=== PATIENT | female | born 1980 | race Caucasian/White ===

== ENCOUNTER 2022-07-16 20:45 | Emergency (ER) | payer OTHER, SELFPAY ==
[2022-07-16 20:46] VITALS: BP 139/89; PULSE 121; RESP 18; TEMP 36.9; O2SAT 96; BMI 22.8
--- NOTE | 2022-07-16 20:48 | ED.PSYCH ---
HPI - Psych General Chief Complaint: General Medical <ABBY Cabrera - Last Filed: 07/16/22 20:51> Stated Complaint: Medical Clearance <ABBY Cabrera - Last Filed: 07/16/22 20:51> Time Seen by Provider: 07/16/22 21:14 <ABBY Cabrera - Last Filed: 07/16/22 20:51> Source: patient <Nixon Johnson MD - Last Filed: 07/16/22 21:43> Mode of arrival: ambulatory <Nixon Johnson MD - Last Filed: 07/16/22 21:43> Limitations: no limitations <Nixon Johnson MD - Last Filed: 07/16/22 21:43> History of Present Illness HPI Narrative: Patient from half a house went out had cocaine and heroin relapse wants to get drug screening done to go back specially check for fentanyl <Nixon Johnson MD - Last Filed: 07/16/22 21:43> Related Data Allergies/Adverse Reactions: Allergies Allergy/AdvReac Type Severity Reaction Status Date / Time No Known Allergies Allergy Verified 07/16/22 20:48 <ABBY Cabrera - Last Filed: 07/16/22 20:51> Review of Systems Review of Systems: Yes all other systems are reviewed and are negative <Nixon Johnson MD - Last Filed: 07/16/22 21:43> [facility] Social History Social History: Social History Advance Directives: No Advance Directives Information Provided: No <ABBY Cabrera - Last Filed: 07/16/22 20:51> Physical Exam Vital Signs: Vital Signs: Last Vital Signs Temp 98.4 F 07/16/22 20:46 Pulse 121 H 07/16/22 20:46 Resp 18 07/16/22 20:46 BP 139/89 07/16/22 20:46 Pulse Ox 96 07/16/22 20:46 O2 Del Method 07/16/22 20:46 BMI result Body Mass Index 22.8 <ABYB Cabrera - Last Filed: 07/16/22 20:51> Vital Signs: Last Vital Signs Temp 98.4 F 07/16/22 20:46 Pulse 121 H 07/16/22 20:46 Resp 18 07/16/22 20:46 BP 139/89 07/16/22 20:46 Pulse Ox 96 07/16/22 20:46 O2 Del Method 07/16/22 20:46 BMI result Body Mass Index 22.8 <Nixon Johnson MD - Last Filed: 07/16/22 21:43> Appearance: Alert. Oriented X3. No acute distress. ENT: Pharynx normal. Oral Mucosa moist Neck: Normal inspection. Neck supple. CVS: Normal heart rate and rhythm. Pulses normal. Respiratory: No respiratory distress. Equal air entry bilateral, no wheezing/rales/rhonchi Skin: Skin warm and dry. Normal skin color. Normal skin turgor. Extremities: No lower extremity edema. Neuro: Oriented X 3. 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 She reports she does not believe she did Fentanyl. Patient denies any symptoms at this time. Plan: Patient reports she will need to drug urine screen. Therefore ordered at this time. <ABBY Cabrera - Last Filed: 07/16/22 20:51> Medical Decision Making Lab Data MDM Lab Attestation statement: I reviewed the patient's lab results. <Nixon Johnson MD - Last Filed: 07/16/22 21:43> Labs: Lab Results 07/16/22 07/16/22 07/16/22 Range/Units 21:04 21:04 21:04 Urine Color Yellow Urine Appearance Cloudy Urine pH 5.5 (5.0-9.0) Ur Specific [place] 1.025 (1.005-1.025) Urine Protein Negative (Neg-Trace) mg/dL Urine Glucose (UA) Negative (Negative) mg/dL Urine Ketones Trace (Negative) mg/dL Urine Blood Negative (Negative) Urine Nitrite Negative (Negative) Ur Leukocyte Esterase Negative (Negative) Urine Test NEGATIVE (NEGATIVE) Urine Opiates Screen Not Detected (Not Detect) Urine Fentanyl Screen POSITIVE H (Not Detect) Ur Barbiturates Screen Not Detected (Not Detect) Ur Phencyclidine Scrn Not Detected (Not Detect) Ur Amphetamines Screen Not Detected (Not Detect) U Benzodiazepines Scrn Not Detected (Not Detect) Urine Cocaine Screen POSITIVE H (Not Detect) U Marijuana (THC) Screen Not Detected (Not Detect) <ABBY Cabrera - Last Filed: 07/16/22 20:51> Lab Results 07/16/22 07/16/22 07/16/22 Range/Units 21:04 21:04 21:04 Urine Color Yellow Urine Appearance Cloudy Urine pH 5.5 (5.0-9.0) Ur Specific [place] 1.025 (1.005-1.025) Urine Protein Negative (Neg-Trace) mg/dL Urine Glucose (UA) Negative (Negative) mg/dL Urine Ketones Trace (Negative) mg/dL Urine Blood Negative (Negative) Urine Nitrite Negative (Negative) Ur Leukocyte Esterase Negative (Negative) Urine Test NEGATIVE (NEGATIVE) Urine Opiates Screen Not Detected (Not Detect) Urine Fentanyl Screen POSITIVE H (Not Detect) Ur Barbiturates Screen Not Detected (Not Detect) Ur Phencyclidine Scrn Not Detected (Not Detect) Ur Amphetamines Screen Not Detected (Not Detect) U Benzodiazepines Scrn Not Detected (Not Detect) Urine Cocaine Screen POSITIVE H (Not Detect) U Marijuana (THC) Screen Not Detected (Not Detect) <Nixon Johnson MD - Last Filed: 07/16/22 21:43> Discharge Plan Discharge Clinical Impression: Substance abuse <ABBY Cabrera - Last Filed: 07/16/22 20:51> Patient Disposition: Home, Self-Care <ABBY Cabrera - Last Filed: 07/16/22 20:51> Instructions: Polysubstance Abuse (ED) <ABBY Cabrera - Last Filed: 07/16/22 20:51> Additional Instructions: Follow up with detox You are positive for fentanyl and cocaine <ABBY Cabrera Last Filed: 07/16/22 20:51>
[2022-07-16 21:26] LABS: Appearance Urine Cloudy; Color Urine Yellow; Glucose Urine UA Negative (Negative); Leukocyte Esterase Urine Negative (Negative); Nitrite Urine Negative (Negative); PH 5.5 (5.0-9.0); Specific Gravity - Urine 1.025 (1.005-1.025); Urine Blood Negative (Negative); Urine Ketones Trace mg/dL (Negative); Urine Protein Negative (Neg-Trace)
[2022-07-16 21:27] LABS: UPreg QC Valid YES; Urine Pregnancy NEGATIVE (NEGATIVE)
[2022-07-16 21:35] LABS: Amphetamine Screen Urine Not Detected (Not Detect); Barbiturates, Urine Not Detected (Not Detect); Benzodiazepines Screen Urine Not Detected (Not Detect); Cannabinoid Screen Urine Not Detected (Not Detect); Cocaine Screen Urine POSITIVE (Not Detect); Fentanyl, urine POSITIVE (Not Detect); Opiate Screen Urine Not Detected (Not Detect); Phencyclidine Screen Urine Not Detected (Not Detect)
--- NOTE | 2022-07-16 21:37 | PC.NURSE ---
security checking patients belongings at this time to ensure patients safety.
--- NOTE | 2022-07-16 22:24 | PC.NURSE ---
Patient presents to ED from [facility]. patient states that empty bags were found in her room and that she was sent here for drug test. Patient admits to snorting heroin and cocaine earlier today. belongings checked by security. This RN spoke with Kirstin at [facility] who states that her boss Jessa specified that patient is unable to return to [facility] is the drug test is positive for fentanyl- states that the patient would need to go to detox. patient tearful and anxious, reports that she is homeless and will have no where else to go. CARE team aware and spoke with patient.
--- NOTE | 2022-07-16 22:55 | MHC.CARE ---
CARE team met with Pt. 42F in [facility]. No SI/HI/AH/VH reported. Pt. reported she felt like using for the past 2 weeks and had money today and bought drugs. Pt. stated she was honest with staff and agreed to the drug test and surrendered the drugs and materials. Pt. reported she is homeless and came from [place] recently. Per Pt. she has nowhere to go. CARE team spoke to [facility] staff, and was told Pt. can speak to the director in the morning and may be able to return to the program. Discussed with Dr. Luevano and Pt. will be discharged. Pt. was given information for the [place] [facility].
== END 2022-07-16 22:47 | disposition home or self-care (01) ==
PROVIDERS: Physician Assistant Medical; Emergency Provider Internal Medicine
DX: F11.129 Opioid abuse with intoxication, unspecified (principal); F14.129 Cocaine abuse with intoxication, unspecified; Z71.51 Drug abuse counseling and surveillance of drug abuser; Z79.899 Other long term (current) drug therapy
CPT/HCPCS: 80307; 81003; 81025; 99282

== ENCOUNTER 2022-07-17 03:06 | Emergency (ER) | payer OTHER, SELFPAY ==
[2022-07-17 03:08] VITALS: BP 127/81; PULSE 104; RESP 17; TEMP 36.9; O2SAT 97; BMI 22.8
--- NOTE | 2022-07-17 03:25 | ED.GENADULT ---
HPI - General Adult General Chief complaint: General Medical Stated complaint: med refill Time Seen by Provider: 07/17/22 03:19 Source: patient Mode of arrival: ambulatory Limitations: no limitations History of Present Illness HPI narrative: Patient comes to the emergency room requesting a medication refill. Patient was [facility] from her [facility] house today. Patient did not take her Lamictal medications with her. Patient states she takes 150 mg b.i.d.. Patient does not have a primary care physician or a neurologist. Patient has no physical complaints. Of note, patient was seen here earlier today. Per previous note, patient was sent to the emergency room for evaluation for fentanyl ingestion. Patient denies ingesting meds. Related Data Previous Rx's Medication Instructions Recorded lamotrigine 150 mg tablet 150 mg PO BID #30 tabs 07/17/22 (Lamictal) Allergies Allergy/AdvReac Type Severity Reaction Status Date / Time No Known Allergies Allergy Verified 07/16/22 20:48 Review of Systems Review of Systems: Constitutional : No Weight loss, No Fever, No Chills, No Night Sweats, No Fatigue, No Malaise ENT/Mouth : No Hearing loss, No Ear Pain, No Nasal Congestion, No Sinus Pain, No Hoarseness, No sore throat, No Rhinorrhea, No Swallowing Difficulty Eyes: No Eye Pain, No Swelling, No Redness, No Foreign Body, No Discharge, No Vision Changes Cardiovascular : No Chest Pain, No SOB, No Dyspnea on Exertion, No Orthopnea, No Edema, No Palpitations Respiratory : No Cough, No Sputum, No Wheezing, No Smoke Exposure, No Dyspnea Gastrointestinal : No Nausea, No Vomiting, No Diarrhea, No Constipation, No abdominal Pain, No Hematochezia, No Melena Genitourinary : no irregular bleeding, No Dysuria, No Urinary Frequency, No Hematuria, No Urinary Incontinence, No Urgency, No Flank Pain, No Urinary Flow Changes, No Hesitancy Musculoskeletal : No joint pain, No Myalgias, No Joint Swelling Skin : No Skin Lesions, No rash Neuro : No Weakness, No Numbness, No Paresthesias, No Loss of Consciousness, No Dizziness, No Headache Psych : No Anxiety/Panic, No Depression, No SI/HI/AH/VH, No Social Issues, Heme/Lymph: No Bruising, No Bleeding,No Lymphadenopathy Endocrine : No Polyuria, No Polydipsia, No Temperature Intolerance [facility] Past Medical History Medical History (Updated 07/17/22 @ 03:30 by Cecy Obrien MD) Seizure disorder Physical Exam ED Vital Signs: Vital Signs - 24 hr 07/17/22 03:08 Temperature 98.4 F Pulse Rate 104 H Respiratory Rate 17 Blood Pressure 127/81 Pulse Oximetry 97 Oxygen Delivery Method Room Air BMI result Body Mass Index 22.8 Const Other: Appearance: Alert. Oriented X3. No acute distress. Eyes: Pupils equal, round and reactive to light. ENT: Pharynx normal. Neck: Normal inspection. Neck supple. No lymph nodes noted. No crepitus CVS: Normal heart rate and rhythm. Pulses normal. Normal S1 and S2 Respiratory: No respiratory distress. Breath sounds normal. No Wheezing. No rales Abdomen: Soft and nontender. No rigidity. No distention. Skin: Skin warm and dry. Normal skin color. Normal skin turgor. Extremities: No lower extremity edema. No Lacerations. No Rash Neuro: Oriented X 3. No motor deficit. No sensory deficit. Moving all extremities. No slurred speech. CN 2 through 12 grossly intact Psych: calm, cooperative, normal affect Course Course Course Narrative: I called [facility] pharmacy, they were able to confirm that patient is on Lamictal 150 mg b.i.d.. Last time that the patient feels her meds was approximately 1 month ago. Discharge Plan Discharge Clinical Impression: Medication refill Patient Disposition: Home, Self-Care Instructions: Medicine Refill (ED) Additional Instructions: Please follow-up with your primary care physician tomorrow and schedule an appointment to be seen by Neurology. If you have any worsening or new symptoms, please return to the emergency room or call 911 Prescriptions: New lamotrigine [Lamictal] 150 mg tablet 150 mg PO BID Qty: 30 0RF Referrals: Brandie Abraham MD [Physician] - 2 days Rojelio Abraham MD [Physician] - 2 days
--- NOTE | 2022-07-17 03:25 | PC.NURSE ---
Addendum entered by Linnette Valdes RN 07/17/22 04:05: Patient seen and assessed by provider in triage. Original Note: Patient to triage to request something to drink. She is offered water but states she already has water. Patient provided with various juices.
--- NOTE | 2022-07-17 04:09 | PC.NURSE ---
This RN calls patient to provide her with discharge paperwork and information and patient has gone outside per reports of other staff members. Unable to locate patient outside at this time- will wait to see if patient returns.
== END 2022-07-17 04:40 | disposition home or self-care (01) ==
LOC: HO.ED 04:32
PROVIDERS: Emergency Provider Emergency Medicine
DX: Z76.0 Encounter for issue of repeat prescription (principal); G40.909 Epilepsy, unspecified, not intractable, without status epilepticus; F19.10 Other psychoactive substance abuse, uncomplicated
CPT/HCPCS: 99282

== ENCOUNTER 2022-07-20 14:15 | Emergency (ER) | payer OTHER, SELFPAY ==
--- NOTE | 2022-07-20 14:33 | ED.OVERDOSE ---
HPI - Overdose General Stated Complaint: HEROIN OD,NARCAN GIVEN WITH GOOD RESULT Time Seen by Provider: 07/20/22 14:31 Source: patient and EMS Mode of arrival: EMS Limitations: no limitations History of Present Illness HPI Narrative: Patient comes to the emergency room via EMS after an accidental heroin overdose. Patient states that she is not suicidal or homicidal. Bystanders found her on the street, EMS was called, patient received Narcan, had good results. At this time, patient is asymptomatic. Patient denies suicidal or homicidal ideation Related Data Previous Rx's Medication Instructions Recorded lamotrigine 150 mg tablet 150 mg PO BID #30 tabs 07/17/22 (Lamictal) Allergies Allergy/AdvReac Type Severity Reaction Status Date / Time No Known Allergies Allergy Verified 07/16/22 20:48 Review of Systems Review of Systems: Constitutional : No Weight loss, No Fever, No Chills, No Night Sweats, No Fatigue, No Malaise ENT/Mouth : No Hearing loss, No Ear Pain, No Nasal Congestion, No Sinus Pain, No Hoarseness, No sore throat, No Rhinorrhea, No Swallowing Difficulty Eyes: No Eye Pain, No Swelling, No Redness, No Foreign Body, No Discharge, No Vision Changes Cardiovascular : No Chest Pain, No SOB, No Dyspnea on Exertion, No Orthopnea, No Edema, No Palpitations Respiratory : No Cough, No Sputum, No Wheezing, No Smoke Exposure, No Dyspnea Gastrointestinal : No Nausea, No Vomiting, No Diarrhea, No Constipation, No abdominal Pain, No Hematochezia, No Melena Genitourinary : no irregular bleeding, No Dysuria, No Urinary Frequency, No Hematuria, No Urinary Incontinence, No Urgency, No Flank Pain, No Urinary Flow Changes, No Hesitancy Musculoskeletal : No joint pain, No Myalgias, No Joint Swelling Skin : No Skin Lesions, No rash Neuro : No Weakness, No Numbness, No Paresthesias, No Loss of Consciousness, No Dizziness, No Headache Psych : No Anxiety/Panic, No Depression, No SI/HI/AH/VH, admits to using drugs Heme/Lymph: No Bruising, No Bleeding,No Lymphadenopathy Endocrine : No Polyuria, No Polydipsia, No Temperature Intolerance PMF[facility] Past Medical History Medical History (Updated 07/20/22 @ 14:37 by Cecy Obrien MD) Seizure disorder Substance abuse Physical Exam Const: Other: Appearance: Alert. Oriented X3. No acute distress. Eyes: Pupils equal, round and reactive to light. ENT: Pharynx normal. Neck: Normal inspection. Neck supple. No lymph nodes noted. No crepitus CVS: Normal heart rate and rhythm. Pulses normal. Normal S1 and S2 Respiratory: No respiratory distress. Breath sounds normal. No Wheezing. No rales Abdomen: Soft and nontender. No rigidity. No distention. Skin: Skin warm and dry. Normal skin color. Normal skin turgor. Extremities: No lower extremity edema. No Lacerations. No Rash Neuro: Oriented X 3. No motor deficit. No sensory deficit. Moving all extremities. No slurred speech. CN 2 through 12 grossly intact Psych: calm, cooperative, normal affect Course Course Course Narrative: Patient declined CARE/sude eval Patient states that she is going to be admitted to a detox program tomorrow. Patient declined any further assistance. Patient is awake, alert and oriented answers, no distress, ambulatory Vital stable Patient provided with home Narcan Discharge Plan Discharge Clinical Impression: Accidental overdose Patient Disposition: Home, Self-Care Instructions: Adult Overdose (ED) Additional Instructions: Please follow-up with your primary care physician tomorrow. If you have any worsening or new symptoms, please return to the emergency room or call 911 Prescriptions: No Action lamotrigine [Lamictal] 150 mg tablet 150 mg PO BID Qty: 30 0RF
[2022-07-20 14:38] VITALS: BP 126/99; PULSE 99; RESP 18; O2SAT 95; BMI 23.6
[2022-07-20] MEDS: Naloxone HCl Nasal TAKE HOME 4 MG SPRAY NOSTRILALT (14:48)
--- OUTSIDE RECORDS SUMMARY | 2022-07-20 14:55 | XMS_ITS | Continuity of Care Document ---
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 Assess/monitor abdominal girth & bowel function, Assess/monitor bowel pattern, bowel sounds, flatus, Assess/monitor number of bowel movements, Assess/monitor color, quantity, quality, consistency of stoo, Assess/monitor pt for nausea, vomiting, Assess/monitor intake & output, DVT prophylaxis as ordered, Elevate HOB to facilitate lung expansion, prevent aspiration, Taking PO: Encourage/monitor intake & swallowing ability, Teach Pt/caregiver on bowel elimination interventions, Teach Pt/caregiver re: importance of bowel regime, Teach/encourage deep breath & cough exercises, Teach/encourage use of incentive spirometer, Incision care as ordered Goals/Interventions, Gastrointestinal Yes Gastrointestinal, Problem Start 06/07/2022 14:11 Reviewed plan with, Gastrointestinal Patient Patient Progression, Gastrointestinal Pt progressing according to plan . Nursing Data Gastrointestinal Data. : Gastrointestinal Data. 06/11/2022 8:00 EST Abdomen Tender, Round, Semi-firm Bowel Sounds LUQ Present Bowel Sounds RUQ Present Bowel Sounds LLQ Present Bowel Sounds RLQ Present Last Bowel Movement 06/10/2022 GI WNL except Normal Bowel Pattern Daily . Neurological Data. : Neurological Data. 06/11/2022 16:00 EST Neurological Assessment Status Unchanged from recorder's assessment 06/11/2022 13:31 EST Pain Intensity 7 06/11/2022 12:31 EST Pain Intensity 7 Pain Intensity 7 06/11/2022 12:00 EST Neurological Assessment Status Unchanged from recorder's assessment 06/11/2022 9:48 EST Pain Intensity 7 06/11/2022 8:48 EST Pain Intensity 8 Pain Intensity 8 06/11/2022 8:00 EST Tongue Disposition Midline Neurological Symptoms History of seizures Level of Consciousness Full Consciousness Orientated to person, place, time Person, Place, Time Facial Symmetry Intact Characteristics of Speech Clear and normal Swallowing Difficulty None Pupil description, left Regular Pupil description, right Regular Pupil reaction, left Brisk Pupil reaction, right Brisk Pupil Size, Left 3 mm Pupil Size, Right 3 mm Strength LUE 5-Active movement against gravity & full resistance Strength RUE 5-Active movement against gravity & full resistance Strength LLE 5-Active movement against gravity & full resistance Strength RLE 5-Active movement against gravity & full resistance Tone LUE Normal Tone RUE Normal Tone LLE Normal Tone RLE Normal Sensation LUE Intact Sensation RUE Intact Sensation LLE Intact Sensation RLE Intact Movement LUE Spontaneous, To command Movement RUE Spontaneous, To command Movement LLE Spontaneous, To command Movement RLE Spontaneous, To command Gait Steady Tremors None Response Eye Opening Spontaneously Motor Response-Adult Obeys commands Verbal Response-Adult Oriented and converses Myles Coma Score 15 Pain Location Abdominal wall 1 - 10 Pain Scale Score 7 Neuro WNL except Corneal/Blink Reflex Intact right, Intact left Eyes and Movements Conjugate gaze: Move in same direction at same speed Headache None Memory Intact Swallow - Neuro Normal . Vital Signs : VITAL SIGNS SECTION 06/11/2022 15:19 EST Temperature 97.3 DegF Temperature Route Axillary Pulse Rate 92 bpm H Respiratory Rate 19 br/min Systolic Blood Pressure 110 mm Hg Diastolic Blood Pressure 71 mm Hg Blood pressure sites Arm, right Mean Arterial Pressure 84 mm Hg Pulse Pressure 39 mm Hg Oxygen Saturation 100 % Mode of Delivery (Oxygen) Room air 06/11/2022 13:31 EST Respiratory Rate 18 br/min 06/11/2022 12:32 EST Early Warning Score 8.00 06/11/2022 12:32 EST Early Warning Score 8.00 06/11/2022 12:31 EST Respiratory Rate 22 br/min Respiratory Rate 22 br/min 06/11/2022 12:20 EST Early Warning Score 6.00 06/11/2022 12:08 EST Early Warning Score 6.00 06/11/2022 12:07 EST Temperature 97.4 DegF Temperature Route Axillary Pulse Rate 104 bpm H Respiratory Rate 18 br/min Systolic Blood Pressure 107 mm Hg Diastolic Blood Pressure 70 mm Hg Blood pressure sites Arm, right Mean Arterial Pressure 82 mm Hg Pulse Pressure 37 mm Hg Oxygen Saturation 100 % Mode of Delivery (Oxygen) Room air 06/11/2022 9:48 EST Respiratory Rate 18 br/min 06/11/2022 8:49 EST Early Warning Score 4.00 06/11/2022 8:48 EST Respiratory Rate 15 br/min L 06/11/2022 8:12 EST Early Warning Score 4.00 06/11/2022 8:11 EST Early Warning Score 3.00 06/11/2022 8:10 EST Temperature 98.8 DegF Temperature Route Oral Pulse Rate 101 bpm H (Modified) Respiratory Rate 18 br/min Systolic Blood Pressure 106 mm Hg Diastolic Blood Pressure 70 mm Hg Blood pressure sites Arm, right Mean Arterial Pressure 82 mm Hg Pulse Pressure 36 mm Hg Oxygen Saturation 99 % Mode of Delivery (Oxygen) Room air . Narrative/Incidental Patient is alert/oriented x4, forgetful and repetitive at times, PERRL, 3mm, denies any visual deficits, face grossly symmetric, speech clear, follows commands. LIM-5/5, ambulating independently in theroom, steady gait. Lungs CTA, no respiratory distress. manager monitoring D/Tao this AM, was SR/STachy,+pedal pulses, +plantar/dorsi flexion, no edema. Bowel sounds present x4, abdomen round/semifirm, abdominal band-aids C/D/I. Urinating w/out any difficulty- bathroom. Patient reported 7/10 surgical sitepain, PRN IV Dilaudid and PO Oxycodone administered with minimal effect, continuous education and emotional support. Pt refused Heparin SQ and labs draw, aware. Planned discharge to facility. Call mackey w/in a reach, safety and isolation precautions maintained, will continue to monitor and report changes. For further assessment please see [facility] [employer] Patient was anxious at the end of the shift, requesting to see provider and IV Dilaudid, walking into the hallway from Enhanced precautions room, and security made aware, will notify night RN. Note Amairani Giang RN: PERFORM Event Display: Discharge/Transfer Note Hospital Authored Date: Nursing Discharge Note Entered On: 06/12/2022 17:03 EST Performed On: 06/12/2022 17:03 EST by Amairani Giang RN Nursing Discharge Note 2 Discharge Time : 06/12/2022 15:07 EST Discharge Level of Care at Discharge : Home/Jail/Foster Care Patient Left Unit Via : Wheelchair Patient Accompanied Off Unit with : Responsible adult DC Instructions Provided & Signed by Pt : No Patient Understands D/C Instructions : Yes Verbalized Understanding of D/C Plan By : Patient Patient Instructions Discharge Signed : No Instructions for Discharge Comments : COVID + Discharge Comments : Pt self d/c's own IV. Pt able to state when to take next doses of all meds and when to make and attend all follow up appointments Did Pt have Specialty Bed or Wound Vac : No Amairani Giang RN - 06/12/2022 17:03 ESTPundPravin schwartz DO: MODIFY, MODIFY, MODIFY, MODIFY, MODIFY, MODIFY, MODIFY, MODIFY, PERFORM Event Display: Discharge/Transfer Note Hospital Authored Date: Patient: ??DIANN CAT ? Age:??42 Years?Sex:??Female?:??1980?? Patient Information Discharge Location: [facility] Primary Care Physician: Not on Staff, PCP Admit Date/Time: 06/07/22 11:21 Discharge Date: 06/12/22 Discharge Disposition Discharge Disposition: Home: No Services Discharge Diagnosis Abdominal pain Acute cholecystitis COVID-19 _ Discharge Medications Acetaminophen (acetaminophen 325 mg oral tablet)?650?Milligram?2?tablet?By Mouth?Every 4 hours?as needed? NEEDED Al Hydroxide/Mg Hydroxide/Simethicone (Maalox Advanced Maximum Strength)?30?Milliliter?By Mouth?Every 4 hours?as needed?as needed for indigestion Albuterol (Albuterol (Eqv-ProAir HFA) 90 mcg/inh inhalation aerosol)?2?puff(s)?Inhalation?Every 6 hours?as needed?Wheezing/Shortness of Breath Benztropine (benztropine 1 mg oral tablet)?1?Milligram?1?tablet?By Mouth?2 times aday Calcium Carbonate (Tums 500 mg oral tablet, chewable)?1,000?Milligram?2?tablet?By Mouth?Every 4 hours?as needed? NEEDED ChlorproMAZINE (chlorproMAZINE 100 mg oral tablet)?3?tab(s)?300?Milligram?By Mouth?Daily at bedtime DiphenhydrAMINE (Banophen 50 mg oral capsule)?1?capsule?50?Milligram?By Mouth?Daily at bedtime Haloperidol (haloperidol 2 mg oral tablet)?2?Milligram?1?tablet?By Mouth?2 times aday Ibuprofen (ibuprofen 600 mg oral tablet)?600?Milligram?1?tablet?By Mouth?Every 6 hours?as needed? NEEDED Lamotrigine (lamotrigine 150 mg oral tablet)?1?tab(s)?150?Milligram?By Mouth?2 times a day Omeprazole (omeprazole 40 mg oral enteric coated capsule)?1?capsule?40?Milligram?By Mouth?Daily Oxycodone (oxyCODONE 5 mg oral tablet)?5?Milligram?1?tablet?By Mouth?Every 4 hours?as needed?for 2?Days?Pain , Severe Sertraline (sertraline 50 mg oral tablet)?1?tab(s)?50?Milligram?By Mouth?Daily Trazodone (traZODone 100 mg oral tablet)?100?Milligram?1?tablet?By Mouth?Daily at bedtime ?? Medications Started Oxycodone 5mg q4 hours PRN Medications Discontinued None Doses Changed None Allergies Allergies ?(Active and Proposed Allergies Only) NKA? (Severity: Unknown severity, Onset: Unknown) ?? PCP Follow-Up/Heads-Up 1. She presented with abdominal pain in the setting of cholecystitis and is now s/p lap elroy. She will be discharged on 2 days of oxycodone for pain control. She should follow-up with general surgery outpatient. 2. During admission, patient reported 1 episode of blood in stool (was not seen by anyone, and shewas unable to provide further details). She refused labwork. If this continues to be an issue outpatient, consider further workup. Hospital Course Diann is a 42-year-old female with history significant for gallstones, seizure disorder and asthma who presented with right upper quadrant pain??found to have cholecystitis and initially had cholecystostomy tube placed on 06/08 and eventually underwent lap cholecystectomy on 06/10. She is currently tolerating a low fat diet and pain is relatively well-controlled. Of note, she was found to be COVID positive but is asymptomatic and has not had any oxygen requirements. She will be discharged back to her treatment facility. ?? Cholecystitis s/p lap elroy 06/10 History of gallstones HIDA scan confirmed cholecystitis S/p IR??trying to place??cholecystostomy tube on 06/08, continued with worsening abdominal pain Was on Abx with CTX + Flagyl Underwent lap elroy and removal of C tube on 06/10 - since then has some pain but has been toleratingdiet well, improving - can continue with Tylenol PRN - can use oxycodone 5mg q4 hours PRN for 2 days for pain control - follow up with general surgery in 1-2 weeks ?? COVID infection Had infection in 1st week of March, tested negative many times after. Patient has??upper respiratory symptoms including sore throat??and cough Patient not vaccinated. Discussed with patient??Paxlovid and interaction with trazodone,??she??decided not to take it??paxlovid - isolation until 06/16 ?? ? UTI UA with WBC 55, negative nitrate Patient has??difficulty with passing urine Urine culture was mixed sonia Received 3 days of CTX as above ?? Seizure disorder: Continue home??Lamictal Elevated ALT, AST: Most likely due to cholecystitis,??trend liver enzymes, improving Active smoker: smokes 1 pack/week,??patient not interested in??nicotine patch History of drug abuse: Patient has been clean for 5 months? Objective Assessment and Plan As outlined above. . Physical Exam General: A & O X 3, not in acute distress.?? Cardiac: S1, S2 normal, no murmur or gallop.?? Resp/Chest wall: CTA, breath sounds normal, no wheeze or ronchi Abdomen: Soft, diffusely tender, no distension, BS +.?? Neuro: A & O x 3, no focal deficits, CN 2-12 intact.?? Skin: No rash. Warm to touch Extremities: no pedal edema, no gross deformities noted. Surgical Procedures Cholecystectomy Open 06/10/2022 14:45 Cholecystectomy Laparoscopic 06/10/2022 14:45 Consultants Juan Jose Tran MD (Surgery) ? Pending Results Pathology Tissue Request ordered on 06/10/2022 Patient Education Titles Low-Fat Diet?? Follow-Up Appointments Added Follow Up ?Time Frame ?Comments Juan Jose Tran MD?1 to 2 weeks?Please call to schedule a follow up appointment Patient Instructions ?Surgical Discharge Instructions?If you develop fever, chills, increased pain, nausea, vomiting, bleeding, or increased redness or pus around the wound please call the surgery office at .??If you were prescribed a??narcotic to help reduce your pain, take only as needed for your pain. You may choose to fill the pr escription in a lesser amount. When taking opioids, there is an increase chance of abuse and/or overdose. Other side effects/complications include nausea, vomiting, difficulty breathing, sedation and constipation. A stool softener was also prescribed to help prevent constipation. Please take medications as prescribed and do not drive while on narcotic medications. Refer to handout for more information. ?You may continue to take Tylenol 975mg every 6-8 hours in addition to Iburpofen 600mg every 8 hours for pain control if needed over the next 3-5 days ?Incisions are closed with absorbable sutures and overlying Steri-strips and bandages. You may remove the bandages 48 hours after surgery. Please leave Steri-strips in place as they will fall off overtime.?If you have any questions, please call the surgery office at . You will need to schedule??follow up in 2 weeks ?Activity Instructions ?-No heavy lifting >10 lbs ?-Increase activity as tolerated ?-Encourage coughing and deep breathing, use of incentive spirometer ?-No tub baths until incision(s) has/have healed ?-May shower 48 hours after surgery ?-No driving until off narcotics and cleared by Surgery ? -Resume your regular diet Home Health Face to Face ^HomeHealthFT[facility] Results Discharge Labs BLOOD BANK Blood Type O Positive ()?? 06/09/2022 18:08 Antibody Screen Negative ()?? 06/09/2022 18:08 ?? BLOOD COUNT & DIFF WBC 3.5 k/mm3 (Low)?? 06/10/2022 05:46 RBC 4.09 m/mm3 (Low)?? 06/10/2022 05:46 Hgb 12.2 Gm/dL ()?? 06/10/2022 05:46 Hct 37.0 % ()?? 06/10/2022 05:46 MCV 90.5 femtoliters ()?? 06/10/2022 05:46 MCH 29.8 pg ()?? 06/10/2022 05:46 MCHC 33.0 g/dL ()?? 06/10/2022 05:46 Platelet Count 156 k/mm3 ()?? 06/10/2022 05:46 RDW-SD 37.9 femtoliters ()?? 06/10/2022 05:46 MPV 9.6 femtoliters ()?? 06/10/2022 05:46 Nucleated RBC (Automated) 0.0 #/100 WBC'S ()?? 06/10/2022 05:46 Abs. NRBC 0.0 k/mm3 ()?? 06/10/2022 05:46 Abs. Neut 2.1 k/mm3 ()?? 06/10/2022 05:46 Abs. Lymph 1.0 k/mm3 ()?? 06/10/2022 05:46 Abs. [place] 0.3 k/mm3 (Low)?? 06/10/2022 05:46 Abs. Eo 0.1 k/mm3 ()?? 06/10/2022 05:46 Abs. Baso 0.0 k/mm3 ()?? 06/10/2022 05:46 Neut % 60.3 % ()?? 06/10/2022 05:46 Lymph % 27.5 % ()?? 06/10/2022 05:46 [place] % 7.6 % ()?? 06/10/2022 05:46 Eos % 4.0 % ()?? 06/10/2022 05:46 Baso % 0.3 % ()?? 06/10/2022 05:46 Imm Gran 0.3 % ()?? 06/10/2022 05:46 Abs. Imm Gran 0.0 k/mm3 ()?? 06/10/2022 05:46 ?? CHEM GENERAL Sodium 137 mmol/L ()?? 06/10/2022 05:46 Potassium 3.5 mmol/L (Low)?? 06/10/2022 05:46 Chloride 101 mmol/L ()?? 06/10/2022 05:46 Bicarbonate Level 26 mmol/L ()?? 06/10/2022 05:46 Anion Gap 10 ()?? 06/10/2022 05:46 Glucose Level 120 mg/dL (High)?? 06/10/2022 05:46 Glucose, POC 89 mg/dL ()?? 06/12/2022 06:46 BUN 7 mg/dL ()?? 06/10/2022 05:46 Creatinine-Blood 0.7 mg/dL ()?? 06/10/2022 05:46 Estimated GFR Creatinine 106 ML/MIN/1.73 M2 ()?? 06/10/2022 05:46 Calcium 8.8 mg/dL ()?? 06/10/2022 05:46 Phosphorus 4.6 mg/dL (High)?? 06/09/2022 01:18 Magnesium 1.8 mg/dL ()?? 06/09/2022 01:18 Protein, Total 6.9 Gm/dL ()?? 06/07/2022 12:18 Albumin 3.9 Gm/dL ()?? 06/09/2022 01:18 AG Ratio 1.9 ()?? 06/06/2022 10:07 Alkaline Phosphatase 203 units/L (High)?? 06/07/2022 12:18 Lipase 17 units/L ()?? 06/06/2022 10:07 AST (SGOT) 44 units/L (High)?? 06/10/2022 05:46 ALT (SGPT) 73 units/L (High)?? 06/10/2022 05:46 Bilirubin, Total 0.2 mg/dL ()?? 06/10/2022 05:46 Bilirubin, Direct <0.2 mg/dL ()?? 06/10/2022 05:46 Bilirubin, Indirect Direct bilirubin is less than the measureable limit. Therefore, indirect mg/dL ()?? 06/10/2022 05:46 Lactate 1.1 mmol/L ()?? 06/06/2022 10:07 ?? COAG INR 1.1 ()?? 06/10/2022 05:46 Protime (PT) 10.9 seconds ()?? 06/10/2022 05:46 APTT 23.4 seconds (Low)?? 06/10/2022 05:46 ? HEME OTHER Hold Blue Top SPECIMEN DISCARDED AFTER 4 HOURS. ()?? 06/06/2022 10:07 ? UA/URINALYSIS Appear/Color, Urine YELLOW ()?? 06/06/2022 10:05 Specific [place], Urine 1.037 (High)?? 06/06/2022 10:05 pH, Urine 7.0 ()?? 06/06/2022 10:05 Albumin, Urine 1+ (Abnormal)?? 06/06/2022 10:05 Glucose, Urine NEGATIVE ()?? 06/06/2022 10:05 Ketones, Urine NEGATIVE ()?? 06/06/2022 10:05 Bilirubin, Urine NEGATIVE ()?? 06/06/2022 10:05 Hemoglobin, Urine TRACE (Abnormal)?? 06/06/2022 10:05 Nitrite, Urine NEGATIVE ()?? 06/06/2022 10:05 Leukocyte, Urine 3+ (Abnormal)?? 06/06/2022 10:05 Urobilinogen NORMAL mg/dL ()?? 06/06/2022 10:05 WBC's, Urine 55 /HPF (High)?? 06/06/2022 10:05 RBC's, Urine 6 /HPF (High)?? 06/06/2022 10:05 Bacteria SLIGHT HPF (Abnormal)?? 06/06/2022 10:05 Squamous Epith >182 /HPF (High)?? 06/06/2022 10:05 Mucus SLIGHT /LPF ()?? 06/06/2022 10:05 Hold Urine Culture Testing available 48 hours from time of collection. ()?? 06/06/2022 10:05 ? VIROLOGY Influenza A PCR NEGATIVE ()?? 06/06/2022 19:34 Influenza B PCR NEGATIVE ()?? 06/06/2022 19:34 RSV PCR NEGATIVE ()?? 06/06/2022 19:34 COVID-19 PCR Specimen Source NASAL ()?? 06/06/2022 19:34 COVID-19 PCR Result POSITIVE (Abnormal)?? 06/06/2022 19:34 ? Culture/Event_id: ?Urine Culture/[id number]?? Collect date: ?06/06/22 10:05 ? Result Status: ?Auth (Verified) Result Date: ?06/08/22 13:27 ? SPECIMEN DESCRIPTION : URINE SPECIAL REQUESTS : NONE CULTURE : Mixed bacterial sonia, indicative of urogenital contamination. REPORT STATUS : FINAL 06/08/2022? RUQ Ultrasound (06/06/22): IMPRESSION:?? Distended and stone filled gallbladder without wall thickening or surrounding fluid. Sonographic Mix sign is negative. Findings are equivocal for very early acute cholecystitis. Correlation with symptoms and serology is recommended. HIDA scan and surgical consultation could be considered. ?? HIDA Scan (06/07/22): Impression: Scintigraphic findings are compatible with acute cholecystitis. ?? CT Abdomen/Pelvis (06/10/22): IMPRESSION:?? 1. ??Mild inflammatory changes in the right upper quadrant and gallbladder with sequela of recent percutaneous cholecystostomy. The coil of the the pigtail catheter appears to be external to the lumen of the gallbladder. 2. ??No convincing evidence of gallbladder perforation on this study. Specifically no evidence of biloma or abscess formation in the right upper quadrant. 3. ??Mild intrahepatic and extra hepatic biliary duct dilatation. ?? Matthew GODDARD, Rosa Wadsworth: PERFORM Event Display: Discharge/Transfer Note Hospital Authored Date: [id number] Attending Attestation:??I have seen and evaluated this patient on 06/12/22. ??I have discussed the case and its management with the resident ??Barry and agree with the findings and plan as documented in the resident???s note except where modified. ?? Rosa Castro MD MPH Hospital Medicine Pager: [phone] Rahat KAYE, Amairani: PERFORM Event Display: Patient Education/Instruction Authored Date: Inpatient Adult Discharge Instructions [place] [id number] Name: DIANN CAT : 1980 Visit: 06/07/2022 11:21:00 Current Date: 06/12/2022 12:56 Account: [id number] Inpatient Adult Discharge Instructions We would like to thank you for allowing us to assist you with your healthcare needs. The following includes patient education materials and information regarding your injury/illness. Our entire staff strives to provide an excellent experience for our patients and their families. PLEASE ENSURE YOU FOLLOW-UP PER THE INSTRUCTIONS BELOW! ?? YOUR OPINION IS IMPORTANT TO US! Please complete the survey you may receive by mail or email. Your feedback will be used to make improvements to the healthcare experiences of our patients and their families. Surveys are administered by [employer] ?? If further treatment with your primary care physician or another doctor is recommended, it is important for you to keep the appointment. Call your primary care physician or return to the Emergency Department immediately if your condition worsens, fails to improve, or new symptoms develop. If you need to find a doctor, you can call [facility] for a referral at [phone] or toll free at [phone]) or log in to [email or web address].. ?? You can view and manage your care through the patient portal or by using a health care jackelin of your choosing. [employer] is a website that allows you to securely view your medical information including your hospital discharge summary, office visit summaries, medications and follow-up visits. You can also request appointments, renew medications, and request access to your medical information using a health care jackelin of your choosing, or just ask a question. You can enroll at [email or web address] or register during your next office visit. You have been discharged from [facility], Patient Care Unit: D5A. If you have any questions regarding these instructions after you leave, please call us and we will be happy to assist you. [facility] Your Care Team Attending Physician Matthew GODDARD, Rosa Wadsworth Consulting Providers Sagrario Tran MD, MD, Xiang Salcido Discharging Providers Pravin Reddy DO Reason for Admission gallbladder pain, coming from [facility] from detox Your Diagnosis Abdominal pain COVID-19 Acute cholecystitis Tests Performed Below is a partial list of the tests performed during your hospitalization. You may have had other tests and procedures not included in this list. Please discuss all test results with your provider. Albumin Level ALT AST Basic Metabolic Panel Bilirubin Total + Direct CBC w/ Differential COVID-19 (NOVEL CORONAVIRUS), PCR COVID-19, RSV, and Flu A/B, Rapid PCR GLUCOSE POC Hepatic Function Panel Hold Blue Top Tube INR Lactic Acid Level Lipase Mg Level Phosphorus Level PTT Type and Screen Urinalysis w/hold for Urine Culture?-- Results Pending -- CT Abd/Pelvis W/ IV + Oral Contrast NM HIDA Scan W/O Ejection Fraction US RUQ ? You will be contacted within 72 hours with your results. Primary Care Provider Not on Staff, PCP Advance Directive Health Care Proxy on File Yes - Health Care Proxy No qualifying data available. Discharge Vitals Temperature: 97.8 DegF Height: 160 cm Pulse Rate:??93 bpm??High Weight: 54.4 kg Respiratory Rate: 18 br/min Body Mass Index: 21.25 kg/m2 Systolic Blood Pressure: 109 mm Hg Body surface area: 1.55 Diastolic Blood Pressure: 71 mm Hg ?? Oxygen Saturation: 100 % ?? Studies Pending All tests and labs ordered during this hospital stay have been completed unless listed below. Pleasediscuss all pending results with your provider listed above in these instructions. ?? Add On Lab Order CBC Comprehensive Metabolic Panel Pathology Tissue Request () Urinalysis w/hold for Urine Culture What to do next Instructions From Your Doctor ?Surgical Discharge Instructions?If you develop fever, chills, increased pain, nausea, vomiting, bleeding, or increased redness or pus around the wound please call the surgery office at .??If you were prescribed a??narcotic to help reduce your pain, take only as needed for your pain. You may choose to fill the pr escription in a lesser amount. When taking opioids, there is an increase chance of abuse and/or overdose. Other side effects/complications include nausea, vomiting, difficulty breathing, sedation and constipation. A stool softener was also prescribed to help prevent constipation. Please take medications as prescribed and do not drive while on narcotic medications. Refer to handout for more information. ?You may continue to take Tylenol 975mg every 6-8 hours in addition to Iburpofen 600mg every 8 hours for pain control if needed over the next 3-5 days ?Incisions are closed with absorbable sutures and overlying Steri-strips and bandages. You may remove the bandages 48 hours after surgery. Please leave Steri-strips in place as they will fall off overtime.?If you have any questions, please call the surgery office at . You will need to schedule??follow up in 2 weeks ?Activity Instructions ?-No heavy lifting >10 lbs ?-Increase activity as tolerated ?-Encourage coughing and deep breathing, use of incentive spirometer ?-No tub baths until incision(s) has/have healed ?-May shower 48 hours after surgery ?-No driving until off narcotics and cleared by Surgery ? -Resume your regular diet Discharge Orders You Need to Schedule the Following Appointments Follow Up with??Marc GODDARD, Juan Jose When??Within 1 to 2 weeks Why: Please call to schedule a follow up appointment Where: [address] [place] [address], [address] [facility] [place] [address]- Discharge Medications DIANN CAT :1980 Visit Date:06/07/2022 Medications: Please continue your medications until treatment is completed or stopped by your provider. Medications not listed below should be discontinued. Discuss any questions related to medications with your provider. What How Much When Instructions Next Dose New Oxycodone (oxyCODONE 5 mg oral tablet) 1 tab(s) Oral Every 4 hours as needed for Pain , Severe Duration: 2 Days Pickup at [facility] Today 06/12/22?? 2pm as needed Changed Albuterol (Albuterol (Eqv-ProAir HFA) 90 mcg/ inh inhalation aerosol) 2 puff(s) Inhalation Every 6 hours as needed for Wheezing/Shortness of Breath Not given, Take as prescribed Changed Sertraline (sertraline 50 mg oral tablet) 1 tab(s) Oral Daily (NOT ON PAPER CHART LAST FILLED 30 FOR 30) ?? Not given,??Take as prescribed Unchanged Acetaminophen (acetaminophen 325 mg oral tablet) 2 tab(s) Oral Every 4 hours as needed for NEEDED Not given, Take as prescribed Unchanged Al Hydroxide/ Mg Hydroxide/ Simethicone (Maalox Advanced Maximum Strength) 30 Milliliter Oral Every 4 hours as needed for as needed for indigestion Take as prescribed Not given, Take as prescribed Unchanged Benztropine (benztropine 1 mg oral tablet) 1 tab(s) Oral Twice a day Not given,??Resume as prescribed Unchanged Calcium Carbonate (Tums 500 mg oral tablet, chewable) 2 tab(s) Oral Every 4 hours as needed for NEEDED Not given, Take as prescribed Unchanged ChlorproMAZINE (chlorproMAZINE 100 mg oral tablet) 3 tab(s) Oral Daily at Bedtime Tonight 06/12/22?? 9pm Unchanged DiphenhydrAMINE (Banophen 50 mg oral capsule) 1 capsule Oral Daily at Bedtime Not given, Resume as prescribed Unchanged Haloperidol (haloperidol 2 mg oral tablet) 1 tab(s) Oral Twice a day Not given, Resume as prescribed Unchanged Ibuprofen (ibuprofen 600 mg oral tablet) 1 tab(s) Oral Every 6 hours as needed for NEEDED Not given, Resume as prescribed Unchanged Lamotrigine (lamotrigine 150 mg oral tablet) 1 tab(s) Oral Twice a day Tonight 06/12/22 9pm Unchanged Omeprazole (omeprazole 40 mg oral enteric coated capsule) 1 capsule Oral Daily Tomorrow 06/13/22 9am Unchanged Trazodone (traZODone 100 mg oral tablet) 1 tab(s) Oral Daily at Bedtime Tonight 06/12/22?? 9pm Pharmacy Information [facility] [address], [place] [id number] [phone] Test Results Below is a partial list of the most recent Laboratory test results done prior to this discharge. You may have had other tests and procedures not included in this list. Please discuss all test results with your provider. Albumin Level (06/09/2022) ???Albumin - 3.9 Gm/dL ALT (06/10/2022) ???ALT (SGPT) - 73 units/L AST (06/10/2022) ???AST (SGOT) - 44 units/L Basic Metabolic Panel (06/10/2022) ???Sodium - 137 mmol/L???Potassium - 3.5 mmol/L???Chloride - 101 mmol/L???Bicarbonate Level - 26 mmol/L???Anion Gap - 10???Glucose Level - 120 mg/dL???BUN - 7 mg/dL???Creatinine-Blood - 0.7 mg/dL???Estimated GFR Creatinine - 106 ML/MIN/1.73 M2???Calcium - 8.8 mg/dL Bilirubin Total + Direct (06/10/2022) ? ?Bilirubin, Total - 0.2 mg/dL? ?Bilirubin, Direct - <0.2 mg/dL? ?Bilirubin, Indirect - Direct bilirubin is less than the measureable limit. Therefore, indirect CBC w/ Differential (06/10/2022) ???WBC - 3.5 k/mm3???RBC - 4.09 m/mm3???Hgb - 12.2 Gm/dL???Hct - 37.0 %???MCV - 90.5 femtoliters???MCH - 29.8 pg???MCHC - 33.0 g/dL???Platelet Count - 156 k/mm3???RDW-SD - 37.9 femtoliters???MPV - 9.6 femtoliters???Nucleated RBC (Automated) - 0.0 #/100 WBC'S???Abs. NRBC - 0.0 k/mm3???Abs. Neut - 2.1 k/ mm3???Abs. Lymph - 1.0 k/mm3???Abs. [place] - 0.3 k/mm3???Abs. Eo - 0.1 k/mm3???Abs. Baso - 0.0 k/mm3???Neut % - 60.3 %???Lymph % - 27.5 %???[place] % - 7.6 %???Eos % - 4.0 %???Baso % - 0.3 %???Imm Gran - 0.3 %???Abs. Imm Gran - 0.0 k/mm3 COVID-19 (NOVEL CORONAVIRUS), PCR (06/12/2022) ???COVID-19 by RT-PCR - NEGATIVE COVID-19, RSV, and Flu A/B, Rapid PCR (06/06/2022) ???Influenza A PCR - NEGATIVE???Influenza B PCR - NEGATIVE???RSV PCR - NEGATIVE???COVID-19 PCR Specimen Source - NASAL???COVID-19 PCR Result - POSITIVE GLUCOSE POC (06/12/2022) ???Glucose, POC - 89 mg/dL Hepatic Function Panel (06/07/2022) ???Protein, Total - 6.9 Gm/dL???Albumin - 4.3 Gm/dL???Alkaline Phosphatase - 203 units/L???AST (SGOT) - 110 units/L? ?ALT (SGPT) - 125 units/L? ?Bilirubin, Total - 0.3 mg/dL? ?Bilirubin, Direct - <0.2 mg/dL???Bilirubin, Indirect - Direct bilirubin is less than the measureable limit. Therefore, indirect Hold Blue Top Tube (06/06/2022) ???Hold Blue Top - SPECIMEN DISCARDED AFTER 4 HOURS. INR (06/10/2022) ???INR - 1.1???Protime (PT) - 10.9 seconds Lactic Acid Level (06/06/2022) ???Lactate - 1.1 mmol/L Lipase (06/06/2022) ???Lipase - 17 units/L Mg Level (06/09/2022) ???Magnesium - 1.8 mg/dL Phosphorus Level (06/09/2022) ???Phosphorus - 4.6 mg/dL PTT (06/10/2022) ???APTT - 23.4 seconds Type and Screen (06/09/2022) ???Blood Type - O Positive???Antibody Screen - Negative Allergies (NKA means No Known Allergies) NKA Problems No qualifying data available Education Materials Below is the list of Educational Leaflet Providered with your Discharge Instructions. Low-Fat Diet?? Valuables and Belongings I fully understand and agree that [facility] accepts no responsibility for all my personal property including clothing, toilet articles, radios, jewelry, dentures, hearing aids, rings, money, or any other property that is in my possession or is brought to me after admission. I understand certain valuables may be placed in a hospital safe for a short period of time. I understand that the hospital is not liable for loss or damage due to accident, fire, or other natural occurrence while said property is in the safe. I accept full responsibility for any personal property that I keep with me, and will not hold the hospital responsible in case of loss or disappearance. I acknowledge that i have been encouraged to send valuables and belongings home. ?? No Valuables/Belongings: No valuables/belongings present Review of Valuable and Belonging List: With patient Date for Pt to Sign Valuables/Belongings: 06/07/22 13:45:00 ?? Other Discharge Information ?? Wound Assessment?? Wound Assessment?? Wound Location I: Abdomen ? Pulmonary Rehab Status?? Pulmonary Rehab Discharge Status?? Respiratory Rate: 18 br/min ? Common Emergency Awareness Tips IS IT A STROKE? Act FAST and Check for these signs: FACE Does the face look uneven? ARM Does one arm drift down? SPEECH Does their speech sound strange? TIME Call at any sign of stroke ?? Heart Attack Signs Chest discomfort: Most heart attacks involve discomfort in the center of the chest and lasts more than a few minutes, or goes away and comes back. It can feel like uncomfortable pressure, squeezing, fullness or pain. Discomfort in upper body: Symptoms can include pain or discomfort in one or both arms, back, neck, jaw or stomach. Shortness of breath: With or without discomfort. Other signs: Breaking out in a cold sweat, nausea, or lightheaded. Remember, MINUTES DO MATTER. If you experience any of these heart attack warning signs, call to get immediate medical attention! ?? Smoking can increase your chances of developing chronic health problems and can cause harmful effects to other family members in your house. If you smoke, you are strongly encouraged to quit. Please call [facility] [employer] at [phone] or [phone] ([phone]) or log in to [email or web address] for referrals to smoking cessation programs. ?? The National Suicide Prevention Hotline is available 22/02 if you or someone you know needs to find areason to keep living. By calling 1-732-355-Pandoo TEK (2821) you'll be connected to a skilled, trained counselor at a crisis center in your area. INPATIENT DISCHARGE INSTRUCTIONS SIGNATURE JAKOB TURNER CATN Location:[facility] Registration Date and Time:06/07/2022 11:21 EST Primary Care Physician: Not on Staff, PCP I DIANN CAT, have received the above patient education materials/instructions and have verbalized understanding. If ambulance or transport services are being used I further acknowledge being given a choice of service. ?? If you need to contact me, please call me at this number: . Patient/Solutions Developer Name: Patient/Solutions Developer Signature: Relationship to Patient: Witness Name/Signature: Date: Amairani Giang RN: PERFORM Event Display: Patient Education Leaflets Authored Date: [id number] Cholecystitis (Presumed) ?? [id number] Cholecystitis (Presumed) Your belly (abdominal) pain may be due to an inflammation and possible infection in the gallbladder. This is called cholecystitis. The gallbladder is a small sac under the liver. It stores and releases bile. Bile is a fluid??made in the liver??that helps with digesting fat. Eating fatty food stimulates the gallbladder to contract and release the bile.??Gallstones??may form in this sac??(called cholelithiasis). Most people don't have symptoms. But if??the stone moves and blocks bile from leaving thegallbladder, it can cause pain and even an infection.??The infection is called cholecystitis.??Bile sludge without a stone can also cause cholecystitis. To help be sure of the diagnosis, you may need to have an ultrasound, CT scan, or other special test. Several things increase the risk of developing gallstones: ??? Being a woman ??? Being obese ??? Being older ??? Losing or gaining weight quickly ??? Having ahigh-calorie diet ??? Being ??? Using hormone therapy ??? Having diabetes The most common symptoms are: ??? Belly pain, cramping, aching ??? Upset stomach (nausea), vomiting ??? Fever Many illnesses can cause these symptoms. Gallbladder pain is called biliary colic and often starts in the upper right side of your belly. The pain can also be in the top middle part of the belly. Sometimes it can spread to your right shoulder, back, and arm. It often starts suddenly, becomes more intense quickly, and then slowly decreases and goes away over a couple of hours. Older adults and peoplewith diabetes may have trouble showing exactly where the pain is.??The pain may occur after meals, especially fatty meals. Home care ??? If you have short periods of gallbladder pain that go away, this is called biliary colic. You may be sent home to rest in bed and follow a clear liquid diet until the pain, upset stomach, and vomiting go away. Call your healthcare provider for a follow-up appointment. Biliary colic can keep coming back and can cause acute cholecystitis. ??? Antibiotics and other medicine may be prescribed. Take these exactly as directed. ??? You can take acetaminophen or ibuprofen for pain, unless youwere given a different pain medicine to use. Talk with your provider before using these medicines ifyou: o Have chronic liver or kidney disease o Ever had a stomach ulcer or GI (gastrointestinal) bleeding o Are taking blood-thinner medicines ??? Fat in your diet makes the gallbladder contract and maycause more pain. Don't have any fat in your diet over the next 2 days. Follow a low-fat diet after that. If you are overweight, a low-fat diet will help you lose weight. ?? Call 911 Call 911 if you have ongoing symptoms that don't get better, or if you get a fever with your symptoms. You may have acute cholecystitis. This is not a condition that should be treated at home. You should go to the emergency room. Often surgery to remove the gallbladder (cholecystectomy) is needed. ?? Follow-up care An infection in the gallbladder is a serious problem and must be watched carefully. Keep any appointments made to have further testing and to see a general surgeon. See your healthcare provider for another exam in the next 1 to 2 days, or as advised. Once cholecystitis has occurred, removing the gallbladder is often needed to prevent a recurrence. You can talk with your provider about this at your follow-up visit.??If you were hospitalized for cholecystitis, your gallbladder may be taken out duringthat same hospital stay. Gallstones that aren't causing infection or symptoms often don't need surgery. ?? When to get medical advice Call your healthcare provider if any of these occur: ??? Repeated vomiting ??? Belly swelling ??? Pain lasting more than 6 hours ??? Fever of 100.4??F (38??C) or higher, or as advised by your provider??? Shaking chills ??? Weakness, dizziness, or fainting ??? Dark yellow pee (urine) or poop (stool) that's light suarez or bibi-colored ??? Yellow color of the skin or eyes (jaundice) ??? Chest, arm, back, neck, or jaw pain ?? Last Reviewed Date: 2022 ?? [id number] The [employer]. All rights reserved. This information is not intended as a substitute for professional medical care. Always follow your healthcare professional's instructions. ??Amairani Giang RN: PERFORM Event Display: Patient Education Leaflets Authored Date: [id number] Cholecystectomy ?? 32894 Cholecystectomy You???ve had painful attacks caused by gallstones. To treat the problem, your healthcare provider wants to remove your gallbladder. This surgery is called a cholecystectomy. Taking out the gallbladdercan ease pain. It will also help stop future attacks. You can live a healthy life without your gallbladder. You may also be able to go back to eating foods you liked before your gallbladder problems started. Before your surgery To get ready: ??? Tell your healthcare provider what medicines you take. Include both prescription and uqqx-drp-tmqropg medicines. Also include vitamins, herbs, and supplements. Be sure to mention if you take prescription blood thinners. This includes warfarin, clopidogrel, and aspirin. ??? Have any tests your provider asks for, such as blood tests. ??? Follow any directions you're given for not eating or drinking before your surgery. You??may need to take some medicine with sips of water. Talk with your healthcare provider. ??? You'll be asked to sign an informed consent document. Signing the form means you understand the surgery. It means you agree to the procedure. Be sure all of your questions are answered before you sign the form. ?? The day of surgery When you arrive, you'll get ready for surgery: ??? An IV (intravenous) line will be put into a veinin your arm or hand. This gives you fluids and medicine. ??? An anesthesiologist will talk with you about anesthesia. This is medicine used to prevent pain. You'll get general anesthesia. This puts youinto a deep sleep during the procedure. ?? During surgery There are??2 methods for taking out the gallbladder. Your healthcare provider will choose which wayis??best for you: ??? Laparoscopic cholecystectomy. This is most common. During surgery, 2 to 4 small cuts (incisions) are made. A thin tube with a camera is used. This is called a laparoscope. The scope is put throughone of the cuts. It sends images to a video screen. Tiny tools for surgery are put through other cuts. The gallbladder is taken out using the scope and these tools. ??? Open cholecystectomy. One largerincision is made. The surgeon sees and works through this cut. Open surgery is most often used when scarring or other things make it a better choice for you. In some cases, your provider may need to change from laparoscopic to open surgery during the procedure. Clips close off the duct connecting the gallbladder to the bile duct. The gallbladder is then removed. ?? After surgery You'll be sent to a room to wake up from the anesthesia. You'll likely go home the same day. In some cases, you'll need to stay overnight. If you had open cholecystectomy, you may need to stay in the hospital for a few days.??When you're released to go home, have a family member or friend ready to drive you. If you're told to take medicines after surgery, do so as told. If you're told to do breathing exercise, do them as directed. You'll be scheduled for a follow-up visit. ?? Risks and possible complications of gallbladder surgery All surgeries have risks. The risks of gallbladder surgery include: ??? Bleeding ??? Infection ??? Injury to the common bile duct or nearby organs ??? Blood clots in the legs ??? Bile leaks ??? Hernia at incision site ??? Pneumonia Call your surgeon if you have these symptoms: ??? Fever of 100.4??F (38.0??C) or higher, or as directed by your provider ??? Redness, pain, or fluid leaking at the incision site ??? Yellow color to your skin or eyes ??? Severe pain or cramping inyour belly ??? Vomiting that continues and unable to keep down fluids ??? Unable to have a bowel movement within 3 days ??? Trouble peeing ??? Rectal bleeding ??? Leg swelling ? Call 911 Call 911 if you have sudden shortness of breath or trouble breathing. ?? Last Reviewed Date: 2021 ?? [id number] The [employer]. All rights reserved. This information is not intended as a substitute for professional medical care. Always follow your healthcare professional's instructions. ??Amairani Giang RN: PERFORM Event Display: Patient Education Leaflets Authored Date: [id number] Oxycodone Oral Tablet 5 mg ?? [id number] Oxycodone Oral Tablet 5 mg Uses For pain. ?? Instructions Some brands of this medicine should be swallowed whole while other brands may be crushed. Ask your pharmacist how you should take your medicine. This medicine may be taken with or without food. Swallow with a full glass (8 oz) of water unless your doctor gives you different instructions. Store at room temperature away from heat, light, and moisture. Do not keep in the bathroom. Please ask your doctor, nurse, or pharmacist how to discard unused medicines safely. To reduce constipation, eat high fiber foods, drink plenty of water and exercise. Avoid grapefruit juice while on this medicine. Drug interactions can change how medicines work or increase risk for side effects. Tell your healthcare providers about all medicines taken. Include prescription and oxxs-jce-dngpcbi medicines, vitamins, and herbal medicines. Speak with your doctor or pharmacist before starting or stopping any medicine. Tell your doctor if symptoms do not get better or if they get worse. Parts of this medicine may come out in the stool. This is normal. ?? Cautions This medicine has an opioid. Opioids help many people but may cause addiction, especially if used for a long time. The addiction risk is higher if you have a substance use disorder (overuse of or addiction to drugs or alcohol). Ask your doctor about the benefits and risks. Ask your doctor or pharmacist if you should have naloxone on hand to treat opioid overdose. Teach your family or household members about the signs of an opioid overdose and how to treat it. If you stop this medicine suddenly, after using it regularly for a long time, you may have withdrawal symptoms. Your doctor may ask you to slowly reduce your dose before stopping it. Tell your doctor right away if you notice any symptoms of withdrawal. Withdrawal symptoms can include unusual sweating, watering eyes, runny nose, chills, stomach pain, diarrhea, yawning, muscle aches, irritability, restlessness, anxiety, trouble sleeping, or thoughts of suicide. Tell your doctor and pharmacist if you ever had an allergic reaction to a medicine. Do not use the medication any more than instructed. This medicine may cause dizziness or fainting, especially after exercising or in hot weather. Be very careful when standing or sitting up quickly. If possible, avoid using with marijuana or other medicines that can cause dizziness or drowsiness. These include allergy/cold products, muscle relaxers, sleep aids, and pain relievers. Your ability to stay alert or to react quickly may be impaired by this medicine. Do not drive or operate machinery until you know how this medicine will affect you. Do not drink beverages with alcohol while on this medicine. This medicine passes into breast milk. Ask your doctor before . This medicine can hurt a new baby in the womb. If you become while on this medicine, tell your doctor immediately. Your doctor may switch you to a different medicine. This medicine should be used with caution in patients with breathing difficulties. Call your doctor right away if you notice slow or shallow breathing. Do not share this medicine with anyone who has not been prescribed this medicine. Some patients have serious side effects from this medicine. Ask your pharmacist to show you the information from the Food and Drug Administration (FDA) and discuss it with you. ?? Side Effects The following is a list of some common side effects from this medicine. Please speak with your doctor about what you should do if you experience these or other side effects. ??? decreased appetite ??? constipation ??? dizziness or drowsiness ??? lightheadedness ??? nausea and vomiting Call your doctor or get medical help right away if you notice any of these more serious side effects: ??? agitated feeling or trouble sleeping ??? decreased awareness or responsiveness ??? breathing interruption during sleep ??? shallow, irregular breathing ??? confusion ??? fainting ??? hallucinations (unusual thoughts, seeing or hearing things that are not real) ??? seizures ??? severe stomach or bowel pain ??? unusual or unexplained tiredness or weakness ??? difficulty or discomfort urinating ???weight loss A few people may have an allergic reaction to this medicine. Symptoms can include difficulty breathing, skin rash, itching, swelling, or severe dizziness. If you notice any of these symptoms, seek medical help quickly. ?? Extra Please speak with your doctor, nurse, or pharmacist if you have any questions about this medicine. ?? [email or web address] IMPORTANT NOTE: This document tells you briefly how to take your medicine, but it does not tell youall there is to know about it. Your doctor or pharmacist may give you other documents about your medicine. Please talk to them if you have any questions. Always follow their advice. There is a more complete description of this medicine available in French. Scan this code on your smartphone or tablet or use the web address below. You can also ask your pharmacist for a printout. If you have any questions, please ask your pharmacist. The display and use of this drug information is subject to Terms of Use. Copyright(c) 2021 [employer]. ?? The [employer]. All rights reserved. This information is not intended as a substitute for professional medical care. Always follow your healthcare professional's instructions. ?? 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 TIDWELL Gender Female [employer] Room Number D515 Height 62.99 inches Date of 1980 Weight 119.93 pounds Age 42 year(s) BSA 1.56 m2 Accession Number [id number] BMI 21.25 kg/m2 Referring Physician Matthew Méndez MD Date of Study 06/08/2022 Timi Cr Performing Physician Xiang Collado MD Fellow Interventional Physician Xiang Collado MD Procedure Procedure Type Peripheral Cath Diagnostic Procedure:Interventional Radiology, Billiary, Cholangiogram Indications Additional Indications: cholecystitis Clinical History Additional Clinical History:Request for cholecystostomy tube.imaging demonstrates gallstones and nonfunctioning gallbladder. Patient is a 42-year-old female with medical history notable for heroin use, 4 months abstinence, no surgical history. Patient presents today for what is almost 24 hours of worsening right upper quadrant lower quadrant pain. Work-up was concerning for cholelithiasis, prompting surgery consultation. Currently, the patient states that 3 months ago, she was diagnosed with gallstones at an outside institution. She was scheduled to have elective surgery 2 months ago. Due to social issues, she was unable to proceed with surgery. For the past 2 weeks, she has had right upper quadrant crampy abdominal pain. Procedure Data Procedure Date Date: 06/08/2022tart: 15:24End: 16:31 The procedure was explained in detail to the patient. Risks, complications and alternative treatments were reviewed. Written consent was obtained. Procedure Medications - Versed (Midazolam) I.V. 0.5 mg. - Fentanyl I.V. 25 mcg. - Versed (Midazolam) I.V. 1 mg. - Fentanyl I.V. 50 mcg. - Lidocaine 1% w/ Sodium Bicarb S.C. 8 ml. - Versed (Midazolam) I.V. 0.5 mg. - Fentanyl I.V. 25 mcg. - Versed (Midazolam) I.V. 1 mg. - Fentanyl I.V. 50 mcg. - Fentanyl I.V. 50 mcg. Sedation: My intra-service moderate sedation time was: from 1538 to 1621. Refer to procedural log for detailed chronological information. Contrast Material - Omnipaque 25 ml Fluoroscopy Time: PCI: 4:20 minutes. Total: 4:20 minutes. Fluoroscopy Dose: PCI: 58 mGy. Total: 58 mGy. Dose Area Product:PCI: 6121 mGy/cm2. Total: 6121 mGy/cm2. Dose Area Product:PCI: 612.1 ??Gy/m2. Total: 612.1 ??Gy/m2. Procedure Narrative EXAMINATION: Ultrasound and fluoroscopically guided drainage of gallbladder. PROCEDURE: Prior to the procedure the patient was seen and reviewed and the nature of the procedure with its risks and benefits explain. The patient understood these and gave permission for the procedure to be performed. The patient was brought to the patient was brought to interventional radiology suite and a limited ultrasound of the abdomen performed. Images were archived. Please see the sedation flow sheet for the complete chronological details. Full Covid 19 PPE precautions were utilized throughout.This was an extended level of service as a consequence . Full PPE was used by all those involved. Full Covid 19 PPE precautions were utilized throughout. Having identified an appropriate approach to the gallbladder the area was prepped and draped in the usual sterile manner. Local anesthetic was injected. Using real time US as guidance an initial puncture is made with a 19 gauge trocar needle. But bile could not be aspirated. Contrast was injected which appeared to fill into the gallbladder around the known stones. However an attempt to pass a guidewire led to the guidewire clearly passing outside the gallbladder. Further contrast injection demonstrated spillage of contrast from the gallbladder into the peritoneum. Several more attempts were made to place a catheter into the gallbladder again with the guidewire passing outside the gallbladder. Eventually an 8.5 Maur[place] pigtail catheter was placed to suction drainage. I did not feel a particular resistance to the passage of the guidewire at any time but as discussed with Dr. Valdivia, Dr sood and also Dr. Reynoso at the completion of the procedure my concern is that the gallbladder wall was either easily perforated due to a change of cholecystitis or was already ruptured , with in either circumstance leading to bile spillage into the peritoneum.. Post-procedure care orders were entered into [facility]. The patient returned to her room in a satisfactory and at the time of leaving the department stable condition having tolerated the procedure fairly well without complication. Note: As the patient has already undergone a diagnostic study previously, comments on this imaging study are limited to its use for guiding percutaneous drainage only. For full diagnostic comments, see the previous imaging study reports. Estimated blood loss was minimal. No physician assisted with this procedure. Specimens/samples=none. No complications. Post-op diagnosis - same as pre-op: Cholecystostomy tube placed. Rupture of the gallbladder into the peritoneum which may be directly due to the procedure may .have Preceded my intervention. FINDINGS: Prominent gallbladder. No evidence of radio-opaque stones. Echogenic stones. Challenging placement of a cholecystostomy tube which led to or may have followed rupture of the gallbladder and spillage of bile into the peritoneum as described above.cholecystostomy tube as described above. Thank you for this referral. Xiang Collado, CP, FRCR, data conversion developer Vascular and Interventional Radiology Hemodynamics Condition: Rest O2 Consumption: Estimated: 171.08Heart Rate: 94 bpm Shunts Oxygen Values O2 Capacity 159.12 O2 Consumption 171.08 Conclusions Interventional Summary Placement of a cholecystostomy tube complicated by leakage of bile from a rupture over the gallbladder which may have preceded or have been due to the procedure. This was an extended level of service as as a consequence of the need to conserve resources during the COVID-19 emergency. Therefore the procedure was performed without the assistance of a scrub assist. All patient preparation was performed by me without assistance. Full PPE was used by all those involved.. Full Covid 19 PPE precautions were utilized throughout.This was an extended level of service as a consequence . Full PPE was used by all those involved. Full Covid 19 PPE precautions were utilized throughout. Interventional Recommendations Postprocedure orders have been entered into [facility]. Maintain cholecystostomy tube to suction drainage with small CODY drain. Change dressings as necessary. As discussed with surgical service patient may require as surgical intervention sooner rather than later if she develops significant signs of biliary peritonitis. Cause for this complication is not apparent from the imaging or the feel of the devices during insertion. Signatures Event Display: IR Biliary Drainage Authored Date: JAY Esquivel S: TRANSCRISancho Mcconnell MD: VERIFY Jaiden Robles MD: SIGN Event Display: Result: Authored Date: Exam: NM Hepatobiliary scan History: Abdominal pain. Concern for cholecystitis on ultrasound 06/06/2022.. Technique: The patient was injected intravenously with 8.2 mCi of Tc99m Mebrofenin and dynamic imaging of the abdomen in the anterior view was obtained for 1 hour. At 1 hour, an additional 1.5 mCi of Tc99m disofenin and delayed imaging was obtained at 4 hours. Comparison studies: Correlation is made with an abdominal ultrasound dated 06/06/2022.. Findings: There is prompt hepatic flow, uptake and excretion. By one hour, there is normal visualization of the common duct and small bowel. There is no visualization of the gallbladder. Additional imaging following a 4 hour delay demonstrated no activity within the gallbladder fossa. Ultrasound demonstrates: Distended and stone filled gallbladder without wall thickening or surrounding fluid. Impression: Scintigraphic findings are compatible with acute cholecystitis. A critical result message ([place]) has been communicated via the [employer] system on 06/07/2022 8:15 PM, Message ID [id number]. I have personally reviewed the images and I agree with this report. WSN: [id number] Ordering Physician: Gi Sales Dictated By: Jaiden Robles MD Dictated Date/Time: 06/07/22 8:15 pm Reviewed By: Sancho Sanabria MD Signed By: Sancho Sanabria MD Signed Date/Time: 06/07/22 8:20 pm Transcribed By: SAMMIE Transcribed Date/Time: 06/07/22 1:09 pmJAY Esquivel S: Chalino Crooks MD: VERIFY Event Display: Result: Authored Date: [id number] US RUQ Hx of Present Illness: abd pain; Reason: Other:; Abdominal Pain; Clinical Question(s): Cholecystitis COMPARISON: None. FINDINGS: Liver: Diffusely echogenic parenchyma. No suspicious lesion. Smooth hepatic contour. Main portal vein patent with normal hepatopetal direction of flow. Gallbladder: Distended and stone filled gallbladder with normal wall thickness of 0.2 cm no surrounding pericholecystic free fluid. Sonographic Mix sign is reportedly negative. Biliary Tree: No intrahepatic or extrahepatic bile duct dilation is identified. Common duct measures: 0.7 cm, tapering to 0.5 cm distally. Pancreas: No abnormality in the visualized portions of the pancreas. Right kidney: 10.6 cm in length. Normal parenchymal echotexture and thickness. No hydronephrosis, stone or mass. IMPRESSION: Distended and stone filled gallbladder without wall thickening or surrounding fluid. Sonographic Mix sign is negative. Findings are equivocal for very early acute cholecystitis. Correlation with symptoms and serology is recommended. HIDA scan and surgical consultation could be considered. WSN: [id number] Ordering Physician: Randy Wills Dictated By: Chalino Miller MD Dictated Date/Time: 06/06/22 11:37 a Reviewed By: Chalino Miller MD Signed By: Chalino Miller MD Signed Date/Time: 06/06/22 11:37 am Transcribed By: SAMMIE Transcribed Date/Time: 06/06/22 11:[address] Abdomen and Pelvis W contrast IV [facility] , [facility] S: TRANSCRIBE Modesto Baptiste MD: VERIFY Event Display: Result: Authored Date: [id number] CT Abd/Pelvis W/ IV + Oral Contrast Reason: Other:; ?ruptured gallbladder; Clinical Question(s): Other:; ?ruptured gallbladder; TECHNIQUE: Spiral CT through the abdomen and pelvis with IV contrast formatted in 3 planes. 75 cc ofOmnipaque 350 was administered intravenously. This study was performed with oral contrast. Weight-based protocol using automatic tube modulation was used to optimize exposure parameters. CTDIvol Body: 12.90 mGy, DLP Body: 744 mGy*cm. COMPARISON: Right upper quadrant quadrant ultrasound 06/06/2022. Percutaneous cholecystostomy images 06/08/2022. FINDINGS: Mushroom Press Operator View Findings, Lines and Tubes: Percutaneous cholecystostomy tube projecting over the right upper quadrant. Visualized Chest: Minimal dependent atelectasis. No pleural effusion. The heart is normal in size. No pericardial effusion. Diaphragm: Normal. Liver: Normal. Gallbladder: Percutaneous drainage catheter appears to coil external to the gallbladder wall, and may not be within the gallbladder lumen. Contrast outlines multiple gallstones in gallbladder with a focus of gas in the fundus, likely iatrogenic. There is mild gallbladder wall thickening and faint surrounding pericholecystic stranding. Bile ducts: Mild intrahepatic and extrahepatic biliary ductal dilatation. The common bile duct measures up to 8 mm in short axis. Spleen: Normal. Pancreas: Normal. Adrenal glands: Normal. Kidneys and ureters: No hydronephrosis, stones, or suspicious masses. Bladder: Normal. Reproductive organs: Unremarkable. Stomach, small bowel, and large bowel: Stomach, small bowel and large bowel are normal in caliber. No evidence of bowel obstruction. Moderate stool retention in the large bowel. Enteric contrast reaches the distal small bowel. No acute inflammatory process of the bowel. Appendix: Not seen, but no evidence of appendicitis. Peritoneum and retroperitoneum: No ascites or pneumoperitoneum. No omental or mesenteric lesions. Lymph nodes: No enlarged lymph nodes. Blood vessels: Normal. No aneurysm. No evidence of venous thrombosis. Abdominal and pelvic wall: Unremarkable. Bones: No acute abnormality. IMPRESSION: 1. Mild inflammatory changes in the right upper quadrant and gallbladder with sequela of recent percutaneous cholecystostomy. The coil of the the pigtail catheter appears to be external to the lumen ofthe gallbladder. 2. No convincing evidence of gallbladder perforation on this study. Specifically no evidence of biloma or abscess formation in the right upper quadrant. 3. Mild intrahepatic and extra hepatic biliary duct dilatation. Findings discussed with Barbara Soliman MD at 06/10/2022 1:23 PM. WSN: [id number] Ordering Physician: Sandra Mcdonald Dictated By: Modesto Baptiste MD Dictated Date/Time: 06/10/22 1:26 pm Reviewed By: Modesto Baptiste MD Signed By: Modesto Baptiste MD Signed Date/Time: 06/10/22 1:26 pm Transcribed By: SAMMIE Transcribed Date/Time: 06/10/22 12:12 pm Patient Care team information Care Team PersonnelName: Peyton Conway RN Position: [facility] RN Member Role: Primary Care Nurse Name: Not on Staff, PCP Position: [facility] Physician (General Medicine) Member Role: PCP Name: Luz Bermeo RN Position: [facility] RN Member Role: Primary Care Nurse [facility] Incarey Attending Position: [facility] ED Medicine MD Name: Stormy Trent Position: [facility] ED TA [facility] Member Role: Furnace Loader Name: Shy Justin RN Position: [facility] ED RN W/OE and Tasks Member Role: Patient Care Provider Name: Larissa Martinez DO Position: [facility] Resident Member Role: ED Resident Address: Address: [address] [place] [address]
== END 2022-07-20 14:55 | disposition home or self-care (01) ==
LOC: HO.ED 14:54
PROVIDERS: Emergency Provider Emergency Medicine
DX: T40.1X1A Poisoning by heroin, accidental (unintentional), initial encounter (principal); Y92.9 Unspecified place or not applicable; F11.19 Opioid abuse with unspecified opioid-induced disorder; Z71.51 Drug abuse counseling and surveillance of drug abuser
CPT/HCPCS: 99283

== ENCOUNTER 2022-07-21 13:24 | Emergency (ER) | payer OTHER, SELFPAY ==
[2022-07-21 13:27] VITALS: BP 110/66; PULSE 110; RESP 20; TEMP 36.8; O2SAT 95; BMI 21.9
--- NOTE | 2022-07-21 13:27 | ED_ITS ---
HPI - Psych General Chief Complaint: Overdose Stated Complaint: od Time Seen by Provider: 07/21/22 13:54 Related Data Previous Rx's Medication Instructions Recorded lamotrigine 150 mg tablet 150 mg PO BID #30 tabs 07/17/22 (Lamictal) Allergies Allergy/AdvReac Type Severity Reaction Status Date / Time No Known Allergies Allergy Verified 07/16/22 20:48 PMFSH Past Medical History Medical History Seizure disorder Substance abuse Social History Social History Advance Directives: No Advance Directives Information Provided: No Physical Exam Vital Signs: Vital Signs: Last Vital Signs Temp 98.3 F 07/21/22 13:27 Pulse 110 H 07/21/22 13:27 Resp 20 07/21/22 13:27 BP 110/66 07/21/22 13:27 Pulse Ox 95 07/21/22 13:27 O2 Del Method 07/21/22 13:27 BMI result Body Mass Index 21.9 Course Course Course Narrative: RME: Patient is a 42-year-old female who presents to the emergency department for evaluation. She had assistance by Care team at this facility who arranged for patient transport to detox in [place] today, she was established with transportation via [employer] as outpatient service. During transport she was concerned she may be overdosing, she is unable to describe what symptoms she is experiencing, she states clearly I'm high?. She reports that she used just a few hours ago, prior to arriving to hospital for transportation. Her friend tried to administer her Narcan in the car but missed her nostril. She is alert, verbal, answer questions appropriately. No apparent respiratory distress. Clinically without signs of acute overdose. She continues to express interest in detox today. Plan: Referral to care team for assistance with detox. Discharge Plan Discharge Clinical Impression: Drug overdose Patient Disposition: Still a Patient Prescriptions: No Action lamotrigine [Lamictal] 150 mg tablet 150 mg PO BID Qty: 30 0RF
--- NOTE | 2022-07-21 14:01 | ED.OVERDOSE ---
HPI - Overdose General Chief Complaint: Overdose Stated Complaint: od Time Seen by Provider: 07/21/22 13:54 Source: patient Mode of arrival: ambulatory Limitations: no limitations History of Present Illness HPI Narrative: Patient comes to the emergency room for an accidental overdose. Patient and her partner were on the way to detox in a Lyft, patient used heroin on her way to detox. Patient's partner gave her 1 dose of intranasal Narcan, patient woke up. The tow truck driver brought them to the emergency room. Patient awake and alert, states that she did not intended hurting herself, this was an accidental overdose just like yesterday. Related Data Previous Rx's Medication Instructions Recorded lamotrigine 150 mg tablet 150 mg PO BID #30 tabs 07/17/22 (Lamictal) Allergies Allergy/AdvReac Type Severity Reaction Status Date / Time No Known Allergies Allergy Verified 07/16/22 20:48 Review of Systems Review of Systems: Constitutional : No Weight loss, No Fever, No Chills, No Night Sweats, No Fatigue, No Malaise ENT/Mouth : No Hearing loss, No Ear Pain, No Nasal Congestion, No Sinus Pain, No Hoarseness, No sore throat, No Rhinorrhea, No Swallowing Difficulty Eyes: No Eye Pain, No Swelling, No Redness, No Foreign Body, No Discharge, No Vision Changes Cardiovascular : No Chest Pain, No SOB, No Dyspnea on Exertion, No Orthopnea, No Edema, No Palpitations Respiratory : No Cough, No Sputum, No Wheezing, No Smoke Exposure, No Dyspnea Gastrointestinal : No Nausea, No Vomiting, No Diarrhea, No Constipation, No abdominal Pain, No Hematochezia, No Melena Genitourinary : no irregular bleeding, No Dysuria, No Urinary Frequency, No Hematuria, No Urinary Incontinence, No Urgency, No Flank Pain, No Urinary Flow Changes, No Hesitancy Musculoskeletal : No joint pain, No Myalgias, No Joint Swelling Skin : No Skin Lesions, No rash Neuro : No Weakness, No Numbness, No Paresthesias, No Loss of Consciousness, No Dizziness, No Headache Psych : No Anxiety/Panic, No Depression, No SI/HI/AH/VH, admits to substance abuse Heme/Lymph: No Bruising, No Bleeding,No Lymphadenopathy Endocrine : No Polyuria, No Polydipsia, No Temperature Intolerance PMFSH Past Medical History Medical History Seizure disorder Substance abuse Social History Social History Advance Directives: No Advance Directives Information Provided: No Physical Exam Vital Signs: Vital Signs: Last Vital Signs Temp 98.3 F 07/21/22 13:27 Pulse 110 H 07/21/22 13:27 Resp 20 07/21/22 13:27 BP 110/66 07/21/22 13:27 Pulse Ox 95 07/21/22 13:27 O2 Del Method 07/21/22 13:27 BMI result Body Mass Index 21.9 Const: Other: Appearance: Alert. Oriented X3. No acute distress. Eyes: Pupils equal, round and reactive to light. ENT: Pharynx normal. Neck: Normal inspection. Neck supple. No lymph nodes noted. No crepitus CVS: Normal heart rate and rhythm. Pulses normal. Normal S1 and S2 Respiratory: No respiratory distress. Breath sounds normal. No Wheezing. No rales Abdomen: Soft and nontender. No rigidity. No distention. Skin: Skin warm and dry. Normal skin color. Normal skin turgor. Extremities: No lower extremity edema. No Lacerations. No Rash Neuro: Oriented X 3. No motor deficit. No sensory deficit. Moving all extremities. No slurred speech. CN 2 through 12 grossly intact Psych: calm, cooperative, normal affect Course Course Course Narrative: Patient is awake and alert, oxygen saturation 95% on room air. Patient arguing in the hallway with her partner, partner was asked to step outsideto the waiting room. Care team consult pending. Patient is not SI or HI, patient is not on a Section 12. Physician observation started at 14:00 14:15, I was informed by the patient's nurse that the patient eloped Discharge Plan Discharge Clinical Impression: Drug overdose Patient Disposition: Elopement Prescriptions: No Action lamotrigine [Lamictal] 150 mg tablet 150 mg PO BID Qty: 30 0RF Interventions: [place]-Suicide Risk Severity Scale Last Done: 07/21/22 14:18 ED Discharge Assessment Last Done: 07/21/22 14:18 Discharge Date/Time: 07/21/22 14:19
--- NOTE | 2022-07-21 14:17 | PC.NURSE ---
PT EVALUATED BY PROVIDER AND IS ASKING TO BE DISCHARGED WITH HER PARTNER TO GO TO DETOX. AMBULATING OUT OF ED W [facility], RR EVEN/UNLABORED, SPEAKING IN FULL CLEAR SENTENCES.
== END 2022-07-21 14:20 | disposition left against medical advice (07) ==
PROVIDERS: Emergency Provider Emergency Medicine
DX: T50.901A Poisoning by unspecified drugs, medicaments and biological substances, accidental (unintentional), initial encounter (principal); F19.10 Other psychoactive substance abuse, uncomplicated; Y92.818 Other transport vehicle as the place of occurrence of the external cause
CPT/HCPCS: 99282; 99283

== ENCOUNTER 2022-07-21 14:40 | Emergency (ER) | payer OTHER, SELFPAY ==
--- NOTE | 2022-07-21 14:52 | ED.PSYCH ---
HPI - Psych General Chief Complaint: General Medical Stated Complaint: Seeking detox Related Data Previous Rx's Medication Instructions Recorded lamotrigine 150 mg tablet 150 mg PO BID #30 tabs 07/17/22 (Lamictal) Allergies Allergy/AdvReac Type Severity Reaction Status Date / Time No Known Allergies Allergy Verified 07/16/22 20:48 [facility] Past Medical History Medical History Seizure disorder Substance abuse Physical Exam Vital Signs: Vital Signs: Last Vital Signs Temp 98.0 F 07/21/22 14:53 Pulse 120 H 07/21/22 14:53 Resp 16 07/21/22 14:53 BP 125/77 07/21/22 14:53 Pulse Ox 99 07/21/22 14:53 O2 Del Method 07/21/22 14:53 BMI result Body Mass Index 21.9 Course Course Course Narrative: RME: Patient last had RME exam at 13:27, she was brought back to the emergency department and evaluated by Dr. Obrien and then she eloped soon after. She is now checking back in again with the same chief complaint.? Earlier today she had assistance by Care team at this facility who arranged for patient transport to detox in [place] today, she was established with transportation via [employer] as outpatient service. During transport she was concerned she may be overdosing, she is unable to describe what symptoms she is experiencing, she states clearly I'm high?. She reports that she used just a few hours ago, prior to arriving to hospital for transportation.? Her friend tried to administer her Narcan in the car but missed her nostril.? She is alert, verbal, answering questions appropriately at this time.? No apparent respiratory distress.? Clinically without signs of acute overdose. She continues to express interest in detox at this time. Plan:? Discussed this case with ED charge nurse, patient has been in the rest room for unknown amount of time prior to this re-evaluation. Declines using any recreational drugs while in the restroom. Discharge Plan Discharge Clinical Impression: Substance abuse Patient Disposition: Elopement Prescriptions: No Action lamotrigine [Lamictal] 150 mg tablet 150 mg PO BID Qty: 30 0RF Interventions: ED Discharge Assessment Last Done: 07/21/22 18:25 Discharge Date/Time: 07/21/22 18:25
[2022-07-21 14:53] VITALS: BP 125/77; PULSE 120; RESP 16; TEMP 36.7; O2SAT 99; BMI 21.9
--- NOTE | 2022-07-21 16:09 | PC.NURSE ---
multiple discussions with multiple people that pt cannot leave to go smoke etc. pt continues to leave the emergency dept.
--- NOTE | 2022-07-21 17:23 | MHC.RECOVSUP ---
? Reason for consult Recovery support o Current location: er/w o Identified substance use concern: [place] - Withdrawal - Seeking ATS (detox) - Support ? Intervention: o Community resources provided o Harm reduction discussion ? Plan: o Patient to follow up with [facility] after discharge ? Additional information: Patient seeking Detox Patient has bed at [facility] Patient waiting on ly
--- NOTE | 2022-07-21 18:22 | PC.NURSE ---
pt not in wr and no longer in bathroom
== END 2022-07-21 18:25 | disposition left against medical advice (07) ==
PROVIDERS: Emergency Provider Emergency Medicine
DX: F19.10 Other psychoactive substance abuse, uncomplicated (principal)
CPT/HCPCS: 99282

== ENCOUNTER 2022-10-05 16:26 | Emergency (ER) | payer OTHER, SELFPAY ==
[2022-10-05 17:10] VITALS: BP 129/78; PULSE 84; RESP 20; TEMP 37.3; O2SAT 99; BMI 20.1
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
[2022-10-05 18:31] VITALS: BP 130/70; PULSE 96; RESP 16; TEMP 37.1; O2SAT 98
--- NOTE | 2022-10-05 18:33 | MHC.EDTECH ---
ctng urine and covid swab collected and sent to lab .
[2022-10-05 18:48] LABS: COVID-19 Test Negative (Negative); IDNOW Serial# 16C4AD1C
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
--- NOTE | 2022-10-05 21:25 | MHC.RECOVSUP ---
pt was just brought to the back and will need assistance with an ATS bed search. time now is 9:25pm.
[2022-10-05 22:18] VITALS: BP 98/46; PULSE 58; RESP 12; TEMP 36.6; O2SAT 95
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
[2022-10-05 22:35] LABS: UPreg QC Valid YES; Urine Pregnancy NEGATIVE (NEGATIVE)
[2022-10-05 22:40] LABS: Amphetamine Screen Urine Not Detected (Not Detect); Barbiturates, Urine Not Detected (Not Detect); Benzodiazepines Screen Urine Not Detected (Not Detect); Cannabinoid Screen Urine Not Detected (Not Detect); Cocaine Screen Urine POSITIVE (Not Detect); Fentanyl, urine POSITIVE (Not Detect); Opiate Screen Urine Not Detected (Not Detect); Phencyclidine Screen Urine Not Detected (Not Detect)
[2022-10-05] MEDS: Doxycycline Monohydrate 100 MG CAPSULE PO (23:27)
[2022-10-05] MEDS: lamoTRIgine 100 MG TABLET 150 MG PO (23:27)
[2022-10-06 03:10] LABS: CT PCR DETECTED (Not Detect.); NG PCR NOT DETECTED (Not Detect.)
[2022-10-06 03:35] VITALS: BP 105/55; PULSE 62; RESP 16; TEMP 36.6; O2SAT 97
--- NOTE | 2022-10-06 04:02 | MHC.EDTECH ---
pt refusing blood draw at this time.
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
[2022-10-06] MEDS: Azithromycin 500 MG TABLET 2000 MG PO (06:18)
[2022-10-06 07:20] VITALS: BP 92/54; PULSE 62; RESP 16; TEMP 36.7; O2SAT 96
== END 2022-10-06 08:45 | disposition home or self-care (01) ==
PROVIDERS: Physician Assistant; Emergency Provider Student in an Organized Health Care Education/Training Program
DX: T76.21XA Adult sexual abuse, suspected, initial encounter (principal); F19.10 Other psychoactive substance abuse, uncomplicated; Z20.2 Contact with and (suspected) exposure to infections with a predominantly sexual mode of transmission
CPT/HCPCS: 0353U; 80307; 81025; 87635; 99284; 99285; J0696